=== PATIENT | male | born 1960 | race Caucasian/White ===

== ENCOUNTER 2019-03-11 18:01 | Inpatient (IN) | payer OTHER, SELFPAY ==
[~2019-03-11] VITALS: Ht 175.3 cm; Wt 72.9 kg
--- NOTE | 2019-03-11 18:53 | NUR ---
PT HERE WITH C/O WITNESSED SEIZURE LASTING APPROX. 1 MINUTE. PT AAO X 4, NAD, ROOM AIR, VSS, DRESSED IN GOWN AND ATTACHED TO MONITOR. FRIENDS AT BEDSIDE AND CALL LIGHT WITHIN REACH. PT STATES INTERMITTENT NAUSEA AND HEADACHE AND "FEELING FUZZY." PER WITNESSES, PT WAS SEIZING APPROX. 1 MINUTE, + LOC, + INCONTINENCE. NO VISIBLE ORAL TRAUMA.
[2019-03-11 20:02] LABS: ALANINE AMINOTRANSFERASE 85 U/L (12-78); ANION GAP 13 mmol/L (5-15); CALCIUM 8.3 mg/dL (8.5-10.1); CHLORIDE 86 mmol/L (98-107); CREATININE 0.57 mg/dL (0.7-1.3)
[2019-03-11 20:03] LABS: ALKALINE PHOSPHATASE 53 U/L (45-117); BILIRUBIN,TOTAL 1.9 mg/dL (0.2-1.0); TOTAL PROTEIN 6.9 g/dL (6.4-8.2)
[2019-03-11 20:06] LABS: BASOPHILS # (AUTO) 0.01 x10^3/uL (0-0.1); BASOPHILS % (AUTO) 0 % (0-1); EOSINOPHILS # (AUTO) 0.15 x10^3/uL (0-0.4); EOSINOPHILS % (AUTO) 1 % (1-7); LYMPHOCYTES # (AUTO) 2.66 x10^3/uL (1-3.4); LYMPHOCYTES % (AUTO) 17 % (22-44); MD NO; MEAN CORPUSCULAR HEMOGLOBIN 36.7 pg (27.5-34.5); MEAN CORPUSCULAR HGB CONC 34.3 g/dL (33.2-36.2); MEAN PLATELET VOLUME 7.5 fL (7.4-10.4); MONOCYTES # (AUTO) 0.59 x10^3/uL (0.2-0.8); MONOCYTES % (AUTO) 4 % (2-9); NEUTROPHILS # (AUTO) 12.36 x10^3/uL (1.8-6.8); NEUTROPHILS % (AUTO) 78 % (42-75); PLATELET COUNT 219 x10^3/uL (130-400); RED BLOOD COUNT 3.76 x10^6/uL (4.38-5.82); RED CELL DISTRIBUTION WIDTH 13.8 % (9.4-14.8)
[2019-03-11] MEDS ORDERED: POTASSIUM CHLORIDE 20 MEQ PACKET ONE (20:16)
--- NOTE | 2019-03-11 20:21 | NUR ---
PT MEDICATED PER ORDERS. UA SENT.
[2019-03-11] MEDS ORDERED: POTASSIUM CHLORIDE 20 MEQ PACKET PO ONE (20:30)
[2019-03-11 20:32] LABS: MICROSCOPIC AUTO
[2019-03-11 20:49] LABS: CULTURE INDICATED? NO
--- NOTE | 2019-03-11 21:13 | NUR ---
REPORT GIVEN TO PRANAV NOVAK. CARE TRANSFERRED.
[2019-03-11] MEDS ORDERED: SODIUM CHLORIDE 0.9% 1,000 ML IV SCH (21:46)
[2019-03-11] MEDS ORDERED: POTASSIUM CHLORIDE 40 MEQ in SODIUM CHLORIDE 0.9% 500 ML IV ONE (22:00)
[2019-03-11] MEDS ORDERED: LORazepam 1MG TABLET PO PRN ×4 (22:00)
[2019-03-11] MEDS ORDERED: FOLIC ACID 1 MG TABLET PO ONE (22:00)
[2019-03-11] MEDS ORDERED: LORazepam 0.5MG TABLET PO PRN (22:00)
[2019-03-11] MEDS ORDERED: ONDANSETRON 2MG/ML, 2ML IVPush PRN (22:00)
[2019-03-11 22:43] VITALS: BP 152/75
[2019-03-11] MEDS: NS + 20MEQ KCL 1,000 ML IV SCH (23:32)
[2019-03-12 01:19] VITALS: BP 125/70
[2019-03-12 06:02] LABS: ANION GAP 9 mmol/L (5-15); CALCIUM 8.4 mg/dL (8.5-10.1); CHLORIDE 95 mmol/L (98-107); CREATININE 0.65 mg/dL (0.7-1.3)
[2019-03-12 06:14] LABS: BASOPHILS # (AUTO) 0.02 x10^3/uL (0-0.1); BASOPHILS % (AUTO) 0 % (0-1); EOSINOPHILS % (AUTO) 0 % (1-7); LYMPHOCYTES # (AUTO) 2.81 x10^3/uL (1-3.4); LYMPHOCYTES % (AUTO) 25 % (22-44); MD NO; MEAN CORPUSCULAR HEMOGLOBIN 36.1 pg (27.5-34.5); MEAN CORPUSCULAR HGB CONC 33.6 g/dL (33.2-36.2); MEAN CORPUSCULAR VOLUME 107.2 fL (81-97); MEAN PLATELET VOLUME 6.9 fL (7.4-10.4); MONOCYTES # (AUTO) 0.73 x10^3/uL (0.2-0.8); MONOCYTES % (AUTO) 6 % (2-9); NEUTROPHILS # (AUTO) 7.87 x10^3/uL (1.8-6.8); NEUTROPHILS % (AUTO) 69 % (42-75); PLATELET COUNT 211 x10^3/uL (130-400); RED BLOOD COUNT 3.66 x10^6/uL (4.38-5.82); RED CELL DISTRIBUTION WIDTH 13.5 % (9.4-14.8)
[2019-03-12] MEDS: NS + 20MEQ KCL 1,000 ML IV SCH ×2 (08:00→16:00)
[2019-03-12 08:15] VITALS: BP 153/73
[2019-03-12] MEDS: MULTIVITAMINS/MINERALS TABLET PO SCH (08:22)
[2019-03-12] MEDS: PANTOPRAZOLE 40 MG IV IVPush SCH (08:22)
[2019-03-12] MEDS: THIAMINE 100MG TABLET PO SCH (08:22)
[2019-03-12 14:23] VITALS: BP 139/84
[2019-03-12] MEDS ORDERED: LORazepam 0.5MG TABLET PO PRN (15:30)
[2019-03-12] MEDS ORDERED: LORazepam 1MG TABLET PO PRN ×4 (15:30)
[2019-03-12] MEDS ORDERED: LORazepam 2 MG/ML, 1ML IV PRN ×3 (15:30)
[2019-03-12 20:07] VITALS: BP 145/82
[2019-03-12] MEDS: LORazepam 2 MG/ML, 1ML IV PRN ×2 (20:24→22:02)
[2019-03-13 00:46] VITALS: BP 127/81
[2019-03-13] MEDS: LORazepam 2 MG/ML, 1ML IV PRN ×2 (01:28→03:26)
[2019-03-13 03:49] LABS: CHLORIDE,URINE RANDOM 57 mmol/L; POTASSIUM,URINE RANDOM 29 mmol/L; SODIUM,URINE RANDOM 37 mmol/L
[2019-03-13 05:41] LABS: CHLORIDE 103 mmol/L (98-107)
[2019-03-13 05:43] LABS: BASOPHILS # (AUTO) 0.01 x10^3/uL (0-0.1); BASOPHILS % (AUTO) 0 % (0-1); EOSINOPHILS # (AUTO) 0.02 x10^3/uL (0-0.4); EOSINOPHILS % (AUTO) 0 % (1-7); LYMPHOCYTES # (AUTO) 3.35 x10^3/uL (1-3.4); LYMPHOCYTES % (AUTO) 37 % (22-44); MD NO; MEAN CORPUSCULAR HEMOGLOBIN 36.4 pg (27.5-34.5); MEAN CORPUSCULAR HGB CONC 33.6 g/dL (33.2-36.2); MEAN CORPUSCULAR VOLUME 108.4 fL (81-97); MONOCYTES # (AUTO) 0.89 x10^3/uL (0.2-0.8); MONOCYTES % (AUTO) 10 % (2-9); NEUTROPHILS # (AUTO) 4.74 x10^3/uL (1.8-6.8); NEUTROPHILS % (AUTO) 53 % (42-75); PLATELET COUNT 191 x10^3/uL (130-400); RED BLOOD COUNT 3.49 x10^6/uL (4.38-5.82); RED CELL DISTRIBUTION WIDTH 14.1 % (9.4-14.8)
[2019-03-13 05:57] LABS: ALANINE AMINOTRANSFERASE 62 U/L (12-78); ALBUMIN 3.3 g/dL (3.4-5.0); ALKALINE PHOSPHATASE 44 U/L (45-117); ANION GAP 6 mmol/L (5-15); BILIRUBIN,TOTAL 1.2 mg/dL (0.2-1.0); CALCIUM 8.4 mg/dL (8.5-10.1); CREATININE 0.62 mg/dL (0.7-1.3); TOTAL PROTEIN 6.1 g/dL (6.4-8.2)
[2019-03-13 06:33] VITALS: BP 139/77
[2019-03-13] MEDS: MULTIVITAMINS/MINERALS TABLET PO SCH (09:00)
[2019-03-13] MEDS ORDERED: THIAMINE 100 MG in DEXTROSE 5% 50 ML IVPB SCH (09:00)
[2019-03-13] MEDS: THIAMINE 100MG TABLET PO SCH (09:00)
[2019-03-13] MEDS: PANTOPRAZOLE 40 MG IV IVPush SCH (09:25)
[2019-03-13] MEDS: NS + 20MEQ KCL 1,000 ML IV SCH (09:25)
[2019-03-13 12:16] VITALS: BP 146/84
== END 2019-03-13 12:50 | disposition left against medical advice (07) | DRG 101 ==
LOC: ED 20:51 → EDIP 21:39 → 4EST 22:29
PROVIDERS: ADMIT Internal Medicine; ATTEND Internal Medicine
DX: G40.89 Other seizures (principal); E87.1 Hypo-osmolality and hyponatremia; F10.239 Alcohol dependence with withdrawal, unspecified; E87.6 Hypokalemia; F12.90 Cannabis use, unspecified, uncomplicated; K29.20 Alcoholic gastritis without bleeding; R32 Unspecified urinary incontinence; Z53.29 Procedure and treatment not carried out because of patient's decision for other reasons
CPT/HCPCS: 36415; 70450; 80048; 80053; 80307; 81001; 82436; 83735; 83930; 84100; 84133; 84300; 85025; 93005; G0378; J3480; C9113; J2060